=== PATIENT | male | born 1935 | race Two or more races ===

== ENCOUNTER 2022-04-10 11:53 | Inpatient (IN) | payer OTHER ==
[~2022-04-10] VITALS: Ht 175.3 cm; Wt 86.0 kg
[2022-04-10 12:29] LABS: Basophils # (auto) 0 10 ^3/uL (0-0.2); Basophils % (auto) 0.4 % (0.0-2.0); Eosinophils # (auto) 0 10 ^3/uL (0-0.8); Eosinophils % (auto) 0.4 % (0.0-7.0); Hematocrit 41.8 % (41.0-53.0); Hemoglobin 13.6 g/dL (13.5-17.5); Lymphocytes # (auto) 0.8 10 ^3/uL (0.4-5.4); Lymphocytes % (auto) 9.9 % (10.0-50.0); Mean Corpuscular Hemoglobin 29.2 pg (28.0-32.0); Mean Corpuscular Hgb Conc. 32.5 g/dL (32.0-36.0); Mean Corpuscular Volume 89.9 fL (80.0-100.0); Monocytes # (auto) 0.5 10 ^3/uL (0-1.3); Monocytes % (auto) 5.8 % (0.0-12.0); Neutrophils # (auto) 7.1 10 ^3/uL (1.6-8.6); Neutrophils % (auto) 83.5 % (37.0-80.0); Red Blood Cells 4.64 10^6/uL (4.5-5.90); Red Cell Distribution Width 15.6 % (11.8-14.3); White Blood Cell 8.5 10^3/uL (4.4-10.8)
[2022-04-10 12:46] LABS: Urine Bacteria NONE SEEN /hpf (None Seen); Urine Blood Negative /uL (Negative); Urine Specific Gravity 1.008 (1.001-1.035); Urine WBC 1 /hpf (0 - 3)
[2022-04-10 12:47] LABS: INR 1.05 (0.9-1.15); Partial Thromboplastin Time 30.8 sec (24.6-33.4)
[2022-04-10 13:05] LABS: Albumin 3.4 g/dL (3.4-5.0); BUN/Creatinine Ratio 20.8; Bilirubin, Total 0.3 mg/dL (0.2-1.0); Calcium 8.9 mg/dL (8.5-10.1); Potassium 4.4 mmol/L (3.5-5.1); Total Protein 6.8 g/dL (6.4-8.2)
[2022-04-10 13:15] LABS: Free T4 (Free Thyroxine) 1.26 ng/dL (0.89-1.76); T3 Total 0.45 ng/mL (0.60-1.81)
[2022-04-10] MEDS ORDERED: MORPHINE SULFATE INJ 2 MG/ml SYRG IV PRN (13:45)
[2022-04-10] MEDS ORDERED: NITROGLYCERIN 0.4 MG SL TAB SL PRN (13:45)
[2022-04-10] MEDS ORDERED: hydrALAZINE HCL 20 MG/ML VL IV PRN (13:45)
[2022-04-10] MEDS: DOPamine 1600MCG/ML D5W 250 ML IV SCH (17:30)
[2022-04-11] MEDS ORDERED: ACETAMINOPHEN 325 MG TAB PO ONE (04:45)
[2022-04-11 06:36] LABS: Basophils # (auto) 0 10 ^3/uL (0-0.2); Basophils % (auto) 0.3 % (0.0-2.0); Eosinophils # (auto) 0.1 10 ^3/uL (0-0.8); Eosinophils % (auto) 1.1 % (0.0-7.0); Hemoglobin 14.2 g/dL (13.5-17.5); Lymphocytes # (auto) 0.7 10 ^3/uL (0.4-5.4); Mean Corpuscular Hemoglobin 30.2 pg (28.0-32.0); Mean Corpuscular Hgb Conc. 33.8 g/dL (32.0-36.0); Mean Corpuscular Volume 89.3 fL (80.0-100.0); Monocytes # (auto) 0.8 10 ^3/uL (0-1.3); Monocytes % (auto) 6.6 % (0.0-12.0); Neutrophils # (auto) 10.7 10 ^3/uL (1.6-8.6); Nucleated Red Blood Cells % 0.1 %; White Blood Cell 12.4 10^3/uL (4.4-10.8)
[2022-04-11 06:55] LABS: Calcium 8.9 mg/dL (8.5-10.1); Potassium 5.1 mmol/L (3.5-5.1)
[2022-04-11 06:57] LABS: BUN/Creatinine Ratio 16.5
[2022-04-11] MEDS: DOPamine 1600MCG/ML D5W 250 ML IV SCH ×2 (07:58→22:11)
[2022-04-12] MEDS: DOPamine 1600MCG/ML D5W 250 ML IV SCH (09:13)
[2022-04-12 11:20] LABS: INR 1.11 (0.9-1.15)
[2022-04-13] VITALS (11 sets, daily range): BP systolic 79–124; BP diastolic 35–77
[2022-04-13] MEDS: DOPamine 1600MCG/ML D5W 250 ML IV SCH ×2 (06:41→08:22)
[2022-04-13] MEDS ORDERED: ACETAMINOPHEN 500 MG TAB PO PRN (12:15)
[2022-04-13] MEDS ORDERED: VANCOMYCIN 1GM/250ML 250 ML IV ONE ×2 (13:50→15:45)
[2022-04-13] MEDS ORDERED: VANCOMYCIN HCL 1000 MG VL ONE (14:11)
[2022-04-13] MEDS ORDERED: fentaNYL CITRATE 100 MCG/2 ML VL ONE (14:11)
[2022-04-13] MEDS ORDERED: MIDAZOLAM HCL 2MG/2ML 2ml VIAL (1mg/ml) ONE (14:11)
[2022-04-13] MEDS ORDERED: LIDOCAINE 2%HCL (LOCAL ANESTH.) INJ 20ML MDV ONE (14:12)
[2022-04-13] MEDS ORDERED: HYDROcodone-ACET 5/325MG TAB PO PRN (15:00)
[2022-04-13] MEDS ORDERED: ACETAMINOPHEN 325 MG TAB PO PRN (15:00)
[2022-04-13] MEDS ORDERED: LOVA20TA4 PO (19:34)
[2022-04-13] MEDS ORDERED: LEVO100T8 PO (19:34)
[2022-04-13] MEDS ORDERED: TAMS0.4C36 PO (19:34)
[2022-04-13] MEDS ORDERED: LISI-275 PO (19:34)
[2022-04-13] MEDS ORDERED: DEXTROSE (50%) 50ML SYRG IV PRN (20:45)
[2022-04-13] MEDS: ACCU-CHEK COMFORT CURVE STRIP VI SCH (22:00)
[2022-04-13] MEDS: InsuLIN REG 1unit/0.01ml Soln (100units/ml) SC SCH (22:00)
[2022-04-14] MEDS ORDERED: VANCOMYCIN 1GM/250ML 250 ML IV ONE (02:00)
[2022-04-14 05:00] VITALS: BP 117/60
[2022-04-14] MEDS: InsuLIN REG 1unit/0.01ml Soln (100units/ml) SC SCH ×3 (07:00→17:00)
[2022-04-14] MEDS: ACCU-CHEK COMFORT CURVE STRIP VI SCH ×3 (07:20→17:00)
[2022-04-14 09:00] VITALS: BP 125/63
[2022-04-14 13:00] VITALS: BP 110/43
[2022-04-14 14:14] VITALS: BP 127/60
== END 2022-04-14 15:00 | disposition home or self-care (01) | DRG 244 ==
LOC: ER 11:53 → EDBD 11:53 → TELE 13:46 → TELE-EAST 04-13 18:00
PROVIDERS: ADMIT Internal Medicine; ATTEND Internal Medicine
PROC: 02HK3JZ Insertion of Pacemaker Lead into Right Ventricle, Percutaneous Approach (ICD-10-PCS; principal; 2022-04-13)
PROC: 02H63JZ Insertion of Pacemaker Lead into Right Atrium, Percutaneous Approach (ICD-10-PCS; 2022-04-13)
PROC: 0JH606Z Insertion of Pacemaker, Dual Chamber into Chest Subcutaneous Tissue and Fascia, Open Approach (ICD-10-PCS; 2022-04-13)
DX: I44.2 Atrioventricular block, complete (principal); I49.9 Cardiac arrhythmia, unspecified; E03.9 Hypothyroidism, unspecified; E11.22 Type 2 diabetes mellitus with diabetic chronic kidney disease; E78.5 Hyperlipidemia, unspecified; Z20.822 Contact with and (suspected) exposure to COVID-19; I25.10 Atherosclerotic heart disease of native coronary artery without angina pectoris; Z95.0 Presence of cardiac pacemaker; Z95.1 Presence of aortocoronary bypass graft; I12.9 Hypertensive chronic kidney disease with stage 1 through stage 4 chronic kidney disease, or unspecified chronic kidney disease; N18.9 Chronic kidney disease, unspecified
CPT/HCPCS: 33208; 36415; 71045; 80048; 80053; 81001; 82962; 83735; 83880; 84439; 84443; 84480; 84484; 85025; 85610; 85730; 87426; 93005; 93306; 99152; 99153; 99291; C1785; G0378; J2250

== ENCOUNTER 2024-05-31 00:48 | Inpatient (IN) | payer OTHER ==
[~2024-05-31] VITALS: Ht 167.6 cm; Wt 90.1 kg
[~2024-05-31 00:48] MED LIST: LEVO100T8 PO; LISI-275 PO; LOVA20TA4 PO; TAMS0.4C39 PO
--- NOTE | 2024-05-31 01:05 | ED.PDOC ---
GI ASSESSMENT HPI Comments HPI: Poor Historian. 88-year-old male presents to emergency department for one day history of two episodes of rectal bleeding. Denies any abdominal pain nausea or vomiting. Patient is on aspirin. Patient has a colonoscopy many years ago. Patient noticed bright red blood in the toilet bowl. Past Medcial History: HLD, CKF, hypothyroidism, prostate CA Past Surgical History: CABG, appendectomy, hernia repair Vitals: temperature of 98.3F, pulse of 69, respiratory rate of 18, blood pressure of 145/73, and a SpO2 of 97%%RA REVIEW OF SYSTEMS: CONSTITUTIONAL: Denies acute: fever, diaphoresis, chills, generalized weakness. HEAD: Denies acute: headache, photophobia Eyes: Denies acute: Double vision, vision loss, eye pain, eye discharge. EARS: Denies acute: tinnitus, hearing loss, ear discharge, ear pain, THROAT: Denies acute: sore throat, swelling, difficulty swallowing , pain with swallowing, change in voice. NECK: Denies acute: neck pain, neck swelling, stiff neck. HEART: Denies acute : chest pain, palpitations, LUNGS: Denies acute: SOB, wheezing, cough, hemoptysis ABDOMEN: Denies acute: abdominal pain, Nausea, Vomiting, diarrhea, melena , hematemesis, SKIN: Denies acute: rash, redness, lesions, itchiness. EXTREMITIES: Denies acute: calf pain, numbness, tingling, weakness, denies pain in extremity. Denies acute: Low back pain. Neuro: Denies acute: focal neurological deficit, motor or sensory focal neurological deficit, tremors, seizure like activity, confusion, dizziness, change in mental status, loss of bowel or bladder function, cauda equina like symptoms. : Denies acute: dysuria, hematuria, flank pain, increase in urinary frequency. PSYCH: Denies acute: hallucination, suicidal ideation, homicidal ideation. PHYSICAL EXAM: General: no acute distress, awake and alert. Head: normocephalic, atraumatic. Neck: supple, trachea is midline, no swelling. Throat: Normal phonation. Eyes:, no erythema, no purulent discharge, no proptosis, no icterus. Heart: regular rate, regular rhythm, no significant murmur appreciated. Lungs: no apparent respiratory distress, Able to speak in full sentences. No wheezing, no rhonchi, no crackles. No stridors Clear to auscultation bilaterally. Abdomen: non tender to palpation, non distended, soft, no guarding, no rebound, + bowel sounds. Neuro: Awake, Alert, oriented to name, self, situation, follows commands GCS=15. Speech is normal. Skin: no petechia, no purpura, no cyanosis, non-pale, not jaundice. Lower extremities: --no - Pitting edema no deformity, no focal swelling, no calf TTP. Makes eye contact. moves all four extremities. Face: no apparent facial droop. Ambulating in the ED independently. With a cane. Time Seen by MD: 00:54 Primary Care Provider: Dilshad Reviewed Notes: Nurses Notes, Medications, Allergies Allergies: Coded Allergies: Codeine (Verified Allergy, Unknown, 04/10/22) Penicillins (Verified Allergy, Unknown, 04/10/22) Uncoded Allergies: PENICILLIN (Allergy, Unknown, 04/10/22) Home Meds Reported Medications Doxycycline Hyclate (Doxycycline Hyclate) 100 Mg Tab, 1 05/31/24 Pregabalin (Lyrica) 50 Mg Cap, 1 CAP PO DAILY for AT BED TIME, #90 CAP 05/31/24 Acetaminophen (Tylenol) 325 Mg Cap, 500 MG PO BID, CAP 05/31/24 Aspirin (Aspir-81) 81 Mg Tab, 1 TAB PO DAILY, #30 TAB 5 Refills 05/31/24 Sacubitril-Valsartan (Entresto 24-26 mg) 1 Tab Tab 05/31/24 Lovastatin (Lovastatin) 20 Mg Tab, 1 TAB PO DAILYPRN 04/13/22 Lisinopril (Lisinopril) 5 Mg Tab, 1 TAB PO DAILYPRN 04/13/22 Levothyroxine Sodium (Levothyroxine Sodium) 100 Mcg Tab, 1 TAB PO DAILYPRN 04/13/22 Tamsulosin Hcl (Tamsulosin Hcl) 0.4 Mg Cap, 1 CAP PO DAILYPRN 04/13/22 Information Source: Patient Past Medical History PAST MEDICAL HISTORY: CKF, DM, High Lipids, HTN, Thyroid Surgical History: Appendectomy, CABG, Hernia Repair Family History Family History: Reviewed,noncontributory to illness Social History Smoker: Non-Smoker Alcohol: Denies ETOH Use Drugs: Denies Drug Use Lives In: Home Was a procedure done? Was a procedure done?: No GI differential Dx Differential Diagnosis: Other (Diverticulitis, colitis, fistula, neoplasm, hemorrhoids, anal fissures, constipation, Crohn's disease, ulcerative colitis) X-Ray, Labs, Meds, VS Vital Signs Date Time Temp Pulse Resp B/P (MAP) Pulse Ox O2 Delivery O2 Flow Rate FiO2 05/31/24 05:25 67 18 128/65 (86) 97 05/31/24 04:15 60 05/31/24 04:00 60 05/31/24 03:25 69 16 97 Room Air* 0 21 05/31/24 03:25 98.1 69 18 145/73 (97) 97 98.1 05/31/24 01:07 98.1 69 18 145/73 (97) 97 Lab Test 05/31/24 04:46 05/31/24 03:20 05/31/24 01:26 Range/Units Urine Color Light-yellow Yellow Urine Clarity Clear Clear Urine pH 5.5 5.0-9.0 Urine Specific [place] 1.032 1.001-1.035 Urine Protein Negative Negative Urine Ketones Negative Negative Urine Blood Negative Negative /uL Urine Nitrite Negative Negative Urine Bilirubin Negative Negative Urine Urobilinogen Normal Negative mg/dL Urine Leukocyte Esterase Negative Negative /uL Urine RBC None seen 0 - 3 /hpf Urine Microscopic WBC 1 0-3 /HPF Urine Squamous Epithelial Cells None seen <5 /hpf Urine Bacteria None seen None Seen /hpf Urine Glucose Normal Normal mg/dL Lactic Acid Level 1.8 4.0 *H 0.4-2.0 mmol/L White Blood Count 8.9 4.4-10.8 10^3/uL Red Blood Count 5.15 4.5-5.90 10^6/uL Hemoglobin 16.0 13.5-17.5 g/dL Hematocrit 47.5 41.0-53.0 % Mean Corpuscular Volume 92.4 80.0-100.0 fL Mean Corpuscular Hemoglobin 31.1 28.0-32.0 pg Mean Corpuscular Hemoglobin Concent 33.7 32.0-36.0 g/dL Red Cell Distribution Width 15.3 H 11.8-14.3 % Platelet Count 228 140-450 10^3/uL Mean Platelet Volume 7.8 6.9-10.8 fL Neutrophils (%) (Auto) 71.4 37.0-80.0 % Lymphocytes (%) (Auto) 20.7 10.0-50.0 % Monocytes (%) (Auto) 5.5 0.0-12.0 % Eosinophils (%) (Auto) 1.9 0.0-7.0 % Basophils (%) (Auto) 0.5 0.0-2.0 % Neutrophils # (Auto) 6.4 1.6-8.6 10 ^3/uL Lymphocytes # (Auto) 1.8 0.4-5.4 10 ^3/uL Monocytes # (Auto) 0.5 0-1.3 10 ^3/uL Eosinophils # (Auto) 0.2 0-0.8 10 ^3/uL Basophils # (Auto) 0 0-0.2 10 ^3/uL Nucleated Red Blood Cells 0.1 % Prothrombin Time 11.6 9.3-11.8 sec Prothrombin Time INR 1.11 0.9-1.15 Activated Partial Thromboplast Time 29.1 24.5-34.5 SEC Sodium Level 144 136-145 mmol/L Potassium Level 4.5 3.5-5.1 mmol/L Chloride Level 106 98-107 mmol/L Carbon Dioxide Level 28 20-31 mmol/L Anion Gap 10 5-15 Blood Urea Nitrogen 19 9-23 mg/dL Creatinine 1.28 0.700-1.30 mg/dL Glomerular Filtration Rate Calc 55 >90 mL/min BUN/Creatinine Ratio 14.8 10.0-20.0 Serum Glucose 99 74-106 mg/dL Calcium Level 10.2 8.7-10.4 mg/dL Total Bilirubin 0.5 0.2-1.0 mg/dL Aspartate Amino Transferase (AST) 20 13-40 U/L Alanine Aminotransferase (ALT) 31 7-40 U/L Alkaline Phosphatase 64 46-116 U/L Troponin I High Sensitivity 24 </=54 ng/L Total Protein 6.7 5.7-8.2 g/dL Albumin 4.0 3.2-4.8 g/dL Time of 1ST Reevaluation: 00:54 Reevaluation 1ST: Unchanged Time of 2ND Reevaluation: 02:24 (The case was discussed with the admitting team (HPI, physical exam, labs and diagnostic tests that were available at the time of disposition, ED course, treatment plan) on the phone. They agreed to admit the patient to their service and assume care of this patient from this point forward. --- Rolly) Reevaluation 2ND: Stable Patient Education/Counseling: Diagnosis, Treatment Family Education/Counseling: No Family Present Comments Patient presented with the above HPI. Gastrointestinal/rectal bleed workup was initiated. patient was found with the above mentioned diagnosis. the following medications were ordered: Protonix, IV fluids the following tests were ordered: CMP, CBC, UA, EKG, lactic acid, prothrombin time, PTPTT, troponin, CBC, CMP, type and screen please refer to order lists of meds and tests obtained by myself Dr. Connor. Patient ED course and VS have been stabilized. Patient has been reassessed in the ED and remained in a stable condition. Pertinent incidental findings were discussed with the patient and/or family. Patient/family voices understanding and is agreeable with plan. Patient has been observed in the ED adequate length of time to insure improvement/stability. Escalation of care considered: Consideration of escalation to observation or admission Patient was ADMITTED to the medicine team for further evaluation and treatment of their presentation. All the reports of any imaging studies that were ordered by myself were reviewed by myself. Departure 1 Departure Time of Disposition: 02:23 Impression: Primary Impression: Rectal bleeding Additional Impression: Elevated lactic acid level Disposition: ADMITTED INPATIENT Admit to: Tele Condition: Guarded Discharged With: Self Critical Care Note Critical Care Time?: No I personally scribed for ALEX CONNOR DO ([email or web address]) on 05/31/24 at 01:30. Electronically submitted by Dieudonne Jeter ([email or web address]). ALEX CONNOR DO May 31, 2024 01:05
[2024-05-31 01:51] LABS: Basophils # (auto) 0 10 ^3/uL (0-0.2); Basophils % (auto) 0.5 % (0.0-2.0); Eosinophils # (auto) 0.2 10 ^3/uL (0-0.8); Eosinophils % (auto) 1.9 % (0.0-7.0); Hematocrit 47.5 % (41.0-53.0); Lymphocytes # (auto) 1.8 10 ^3/uL (0.4-5.4); Lymphocytes % (auto) 20.7 % (10.0-50.0); Mean Corpuscular Hemoglobin 31.1 pg (28.0-32.0); Mean Corpuscular Hgb Conc. 33.7 g/dL (32.0-36.0); Mean Corpuscular Volume 92.4 fL (80.0-100.0); Monocytes # (auto) 0.5 10 ^3/uL (0-1.3); Monocytes % (auto) 5.5 % (0.0-12.0); Neutrophils # (auto) 6.4 10 ^3/uL (1.6-8.6); Neutrophils % (auto) 71.4 % (37.0-80.0); Nucleated Red Blood Cells % 0.1 %; Platelet Count (auto) 228 10^3/uL (140-450); Red Blood Cells 5.15 10^6/uL (4.5-5.90); Red Cell Distribution Width 15.3 % (11.8-14.3); White Blood Cell 8.9 10^3/uL (4.4-10.8)
[2024-05-31 02:08] LABS: INR 1.11 (0.9-1.15); Partial Thromboplastin Time 29.1 SEC (24.5-34.5); Prothrombin Time 11.6 sec (9.3-11.8)
[2024-05-31 02:19] LABS: Alanine Aminotransferase 31 U/L (7-40); Alkaline Phosphatase 64 U/L (46-116); Anion Gap 10 (5-15); Aspartate Aminotransferase 20 U/L (13-40); BUN/Creatinine Ratio 14.8 (10.0-20.0); Bilirubin, Total 0.5 mg/dL (0.2-1.0); Blood Urea Nitrogen 19 mg/dL (9-23); Calcium 10.2 mg/dL (8.7-10.4); Carbon Dioxide 28 mmol/L (20-31); Chloride 106 mmol/L (98-107); Glucose 99 mg/dL (74-106); Potassium 4.5 mmol/L (3.5-5.1); Sodium 144 mmol/L (136-145); Total Protein 6.7 g/dL (5.7-8.2)
[2024-05-31] MEDS: SODIUM CHLORIDE 0.9% 1,000 ML IV ONE (03:02)
[2024-05-31] MEDS: PANTOPRAZOLE 40 MG/10 ML VIAL INJ IV ONE (03:02)
[2024-05-31 03:25] VITALS: PULSE 69; RESP 16; O2SAT 97
--- NOTE | 2024-05-31 04:06 | DVH ---
Examination: ABPLIV CLINICAL INDICATION: rectal bleeding COMPARISON: None. CONTRAST USED: Intravenous. TECHNIQUE: A post contrast CT study of the abdomen and pelvis is performed. The examination was per formed with [address] scan done according to ALARA (As Low as Reasonably Achievable). Mu ltiplanar reconstructions were obtained. FINDINGS: CT ABDOMEN: Visualized lower thorax: The evaluation of lung bases demonstrates no focal infiltrates or pleural e ffusion. Atelectatic band and / or scarring in the visualized right lower pulmonary lobe posteriorly. Partly visualized intracardiac radiopaque leads noted, likely pacemaker leads. Advised correlation [facility] history of pacemaker insertion. Liver: The liver is normal in size. The portal venous radicles are normal. There is no intrahepatic biliary radicle dilatation. Gallbladder: The gallbladder is normal and reveals no intrinsic abnormality. The common bile duct is not dilated. Pancreas: The pancreas is normal in size and shape. No focal lesion is seen within. The peripancreatic fat planes are normal. Spleen: The spleen is normal in size. Hypodense lesion of approximate size 6 mm noted in the splenic parenchyma superiorly. Advised furth er evaluation with MRI abdomen without contrast. Retroperitoneum: Both adrenal glands are normal in size and morphology. There is no significant retroperitoneal lymphadenopathy. The kidneys are normal in size with no hydronephrosis or renal calculi. Bosniak class I simple renal cortical cysts in both kidneys, largest of approximate size 15 mm at the upper pole of left kidney for which no routine follow-up is required. Vessels: Calcific atherosclerotic aorto-iliac plaques noted. Otherwise, the aorta, IVC and mesenter ic vessels appear unremarkable. Stomach and bowel: Small fat filled umbilical hernia. The bowel loops are unremarkable. There is no ascites. Skeletal system: Sacralization of L5 vertebra, transitional vertebra, however, MRI localizer sequenc e of whole spine for vertebral count is suggested. Degenerative changes in the visualized thoracolumbar vertebrae and the pelvic bones. CT PELVIS: Appendix: The appendix is not visualized. Colon: The rectosigmoid junction and rectum are collapsed with wall thickening (anteroposterior diam eter of the rectum is approximately 37 mm), possibility of rectal neoplasm to be considered. Advised clinical and proctoscopic correlations and further evaluation with MRI pelvis without contrast if cli nically indicated. Diverticulosis without diverticulitis in the descending and sigmoid colon. The ascending and transverse colon are unremarkable. Urinary bladder: The urinary bladder is unremarkable. Pelvic organs: The prostate is normal in size and unremarkable in appearance. No significant pelvic lymphadenopathy is identified. No abnormal fluid collection is seen. Left indirect inguinal omentocele. IMPRESSION: 1. The rectosigmoid junction and rectum are collapsed with wall thickening (anteroposterior diameter of the rectum is approximately 37 mm), possibility of rectal neoplasm to be considered. Advised cli nical and proctoscopic correlations and further evaluation with MRI pelvis without contrast if clinic ally indicated. 2. No abdominal adenopathy. 3. No ascites. 4. No free air or inflammatory changes. 5. Chronic and / or ancillary findings as described above. Electronically Signed 05/31/2024 04:05 Savanna Edouard
[2024-05-31] MEDS: IOHEXOL 300 MG/ML 100ML BOTTLE IJ ONE (04:20)
[2024-05-31 05:00] LABS: Urine Bacteria None Seen /hpf (None Seen)
[2024-05-31 05:05] LABS: Urine Blood Negative /uL (Negative); Urine Clarity Clear (Clear); Urine Color Light-Yellow (Yellow); Urine Protein, UAD Negative (Negative); Urine Specific Gravity 1.032 (1.001-1.035); Urine Squamous Epithelial Cell None Seen /hpf (<5); Urine Urobilinogen Normal (Negative); Urine WBC 1 /HPF (0-3); Urine pH 5.5 (5.0-9.0)
--- NOTE | 2024-05-31 06:40 | ECG ---
[facility] Test Date: 2024-05-31 Test Time: 04:15:33 Pat Name: BARBER HORVATH Department: ED Room: [address] [place] [address] Gender: M Outbound Telemarketer: LYLE : 1935 Requested By: ALEX KNIGHT Order Number: [id number] Reading MD: David Streeter Measurements Intervals [place] Rate: 60 P: 0 IL: 51 QRS: -79 QRSD: 150 T: 88 QT: 471 QTc: 471 Interpretive Statements Ventricular-paced complexes No further analysis attempted due to paced rhythm Electronically Signed On 05-31-2024 8:57:12 PST by David Streeter Please click the below link to view image of tracing.
[2024-05-31] MEDS ORDERED: NITROGLYCERIN 0.4 MG SL TAB SL PRN (06:45)
[2024-05-31] MEDS: SOD CHL 0.45% 1,000 ML IV ONE (06:56)
--- NOTE | 2024-05-31 07:07 | DVHHP2 ---
Admitting Diagnosis: Lower GI bleed History of Present Illness HPI 88 years old male with h/o prostate cancer was brought to the ER c/o two episodes of rectal bleed, stating that there was bright red blood in the toilet bowl twice. Denies abdominal pain, nausea, vomiting, denies previous episodes similar to this one. Denies any abdominal pain nausea or vomiting. Patient had no colonoscopy for many years. CT shows rectosigmoid junction wall thickening possibly fletcher to neoplasm. Home Meds Reported Medications Lovastatin (Lovastatin) 20 Mg Tab, 1 TAB PO DAILYPRN 04/13/22 Lisinopril (Lisinopril) 5 Mg Tab, 1 TAB PO DAILYPRN 04/13/22 Levothyroxine Sodium (Levothyroxine Sodium) 100 Mcg Tab, 1 TAB PO DAILYPRN 04/13/22 Tamsulosin Hcl (Tamsulosin Hcl) 0.4 Mg Cap, 1 CAP PO DAILYPRN 04/13/22 Past Medical History Cardiac: HTN, Hyperlipidemia Renal/: Prostate cancer Patient Family History: FH: cancer Review of Systems Gastrointestinal: Hematochezia H&P Exam Vital Signs Vital Signs Date Time Temp Pulse Resp B/P (MAP) Pulse Ox O2 Delivery O2 Flow Rate FiO2 05/31/24 05:25 67 18 128/65 (86) 97 05/31/24 03:25 Room Air* 0 21 05/31/24 03:25 98.1 98.1 General Appeara: Obese Head Exam: Normal inspection Neck Exam: Normal inspection Eye Exam: bilateral eye PERRL, bilateral eye EOMI Pulmonary/Respiratory: Lungs clear Cardiovascular/Chest: Regular rate Abdominal Exam: No tenderness Neuro/Mental St: Alert, Oriented Labs/Xrays Labs Test 05/31/24 04:46 05/31/24 03:20 05/31/24 01:26 Range/Units Urine Color Light-yellow Yellow Urine Clarity Clear Clear Urine pH 5.5 5.0-9.0 Urine Specific [place] 1.032 1.001-1.035 Urine Protein Negative Negative Urine Ketones Negative Negative Urine Blood Negative Negative /uL Urine Nitrite Negative Negative Urine Bilirubin Negative Negative Urine Urobilinogen Normal Negative mg/dL Urine Leukocyte Esterase Negative Negative /uL Urine RBC None seen 0 - 3 /hpf Urine Microscopic WBC 1 0-3 /HPF Urine Squamous Epithelial Cells None seen <5 /hpf Urine Bacteria None seen None Seen /hpf Urine Glucose Normal Normal mg/dL Lactic Acid Level 1.8 0.4-2.0 mmol/L White Blood Count 8.9 4.4-10.8 10^3/uL Red Blood Count 5.15 4.5-5.90 10^6/uL Hemoglobin 16.0 13.5-17.5 g/dL Hematocrit 47.5 41.0-53.0 % Mean Corpuscular Volume 92.4 80.0-100.0 fL Mean Corpuscular Hemoglobin 31.1 28.0-32.0 pg Mean Corpuscular Hemoglobin Concent 33.7 32.0-36.0 g/dL Red Cell Distribution Width 15.3 H 11.8-14.3 % Platelet Count 228 140-450 10^3/uL Mean Platelet Volume 7.8 6.9-10.8 fL Neutrophils (%) (Auto) 71.4 37.0-80.0 % Lymphocytes (%) (Auto) 20.7 10.0-50.0 % Monocytes (%) (Auto) 5.5 0.0-12.0 % Eosinophils (%) (Auto) 1.9 0.0-7.0 % Basophils (%) (Auto) 0.5 0.0-2.0 % Neutrophils # (Auto) 6.4 1.6-8.6 10 ^3/uL Lymphocytes # (Auto) 1.8 0.4-5.4 10 ^3/uL Monocytes # (Auto) 0.5 0-1.3 10 ^3/uL Eosinophils # (Auto) 0.2 0-0.8 10 ^3/uL Basophils # (Auto) 0 0-0.2 10 ^3/uL Nucleated Red Blood Cells 0.1 % Prothrombin Time 11.6 9.3-11.8 sec Prothrombin Time INR 1.11 0.9-1.15 Activated Partial Thromboplast Time 29.1 24.5-34.5 SEC Sodium Level 144 136-145 mmol/L Potassium Level 4.5 3.5-5.1 mmol/L Chloride Level 106 98-107 mmol/L Carbon Dioxide Level 28 20-31 mmol/L Anion Gap 10 5-15 Blood Urea Nitrogen 19 9-23 mg/dL Creatinine 1.28 0.700-1.30 mg/dL Glomerular Filtration Rate Calc 55 >90 mL/min BUN/Creatinine Ratio 14.8 10.0-20.0 Serum Glucose 99 74-106 mg/dL Calcium Level 10.2 8.7-10.4 mg/dL Total Bilirubin 0.5 0.2-1.0 mg/dL Aspartate Amino Transferase (AST) 20 13-40 U/L Alanine Aminotransferase (ALT) 31 7-40 U/L Alkaline Phosphatase 64 46-116 U/L Troponin I High Sensitivity 24 </=54 ng/L Total Protein 6.7 5.7-8.2 g/dL Albumin 4.0 3.2-4.8 g/dL Assessment/Plan Problem List: (1) Colon wall thickening (2) Rectal bleeding Plan NPO, GI consult, IVF, Protonix Plan discussed with: Patient ISREAL BAEZ MD May 31, 2024 07:07
[2024-05-31 07:31] LABS: Basophils # (auto) 0 10 ^3/uL (0-0.2); Basophils % (auto) 0.1 % (0.0-2.0); Eosinophils # (auto) 0.1 10 ^3/uL (0-0.8); Eosinophils % (auto) 0.8 % (0.0-7.0); Hematocrit 40.5 % (41.0-53.0); Hemoglobin 13.7 g/dL (13.5-17.5); Lymphocytes # (auto) 1.2 10 ^3/uL (0.4-5.4); Lymphocytes % (auto) 14.8 % (10.0-50.0); Mean Corpuscular Hgb Conc. 33.8 g/dL (32.0-36.0); Mean Corpuscular Volume 91.8 fL (80.0-100.0); Monocytes # (auto) 0.4 10 ^3/uL (0-1.3); Monocytes % (auto) 5.4 % (0.0-12.0); Neutrophils # (auto) 6.5 10 ^3/uL (1.6-8.6); Neutrophils % (auto) 78.9 % (37.0-80.0); Nucleated Red Blood Cells % 0.6 %; Platelet Count (auto) 197 10^3/uL (140-450); Red Blood Cells 4.41 10^6/uL (4.5-5.90); Red Cell Distribution Width 14.8 % (11.8-14.3); White Blood Cell 8.3 10^3/uL (4.4-10.8)
[2024-05-31 07:49] LABS: Alanine Aminotransferase 23 U/L (7-40); Albumin 3.4 g/dL (3.2-4.8); Alkaline Phosphatase 50 U/L (46-116); Anion Gap 7 (5-15); Aspartate Aminotransferase 14 U/L (13-40); BUN/Creatinine Ratio 15.8 (10.0-20.0); Bilirubin, Total 0.5 mg/dL (0.2-1.0); Blood Urea Nitrogen 18 mg/dL (9-23); Calcium 9.2 mg/dL (8.7-10.4); Carbon Dioxide 27 mmol/L (20-31); Chloride 107 mmol/L (98-107); Glucose 86 mg/dL (74-106); Potassium 4.1 mmol/L (3.5-5.1); Sodium 141 mmol/L (136-145)
[2024-05-31 07:58] LABS: Total Protein 5.6 g/dL (5.7-8.2)
[2024-05-31 08:21] VITALS: PULSE 61; RESP 12; O2SAT 98
[2024-05-31] MEDS: GOLYTELY 4L KIT PO ONE ×2 (09:13→16:41)
[2024-05-31 18:34] VITALS: RESP 20
[2024-05-31] MEDS ORDERED: SACU1TAB (18:56)
[2024-05-31] MEDS ORDERED: ASPI1TAB20 PO (18:57)
[2024-05-31] MEDS ORDERED: ACET1CAP14 PO (18:58)
[2024-05-31] MEDS ORDERED: PREG50CA PO (19:00)
[2024-05-31] MEDS ORDERED: DOXY100T2 (19:01)
[2024-05-31 21:00] VITALS: BP 152/80; PULSE 56; RESP 17; TEMP 97.4; O2SAT 97
--- NOTE | 2024-05-31 21:25 | DVHINCON2 ---
DATE OF CONSULTATION: 05/31/2024 INPATIENT GI CONSULTATION REFERRING PHYSICIAN: Dr. Lofton. REASON FOR CONSULTATION: Abnormal CT scan. HISTORY OF PRESENT ILLNESS: This is a 88-year-old male, patient has history of hypothyroidism, hypertension, dyslipidemia, history of prostate cancer, who presents to the hospital with complaints of recurrent rectal bleeding for the last 2 days. The patient underwent initial workup in the ER showing hemoglobin of 13.7 [address] scan showing rectosigmoid junction and rectum collapse and wall thickening, possibly related to rectal neoplasm. GI is consulted for further input. The patient reportedly had a colonoscopy in 2011 and was unremarkable. The patient denies any associated severe abdominal pain and constipation. Denies unintentional weight loss. REVIEW OF SYSTEMS: Otherwise, 10 point review of systems negative. PAST MEDICAL HISTORY: As above. FAMILY HISTORY: Negative for early GI malignancy. PHYSICAL EXAMINATION: VITAL SIGNS: Currently on exam, temperature is 98.6, pulse 60, blood pressure 123/66. GENERAL: The patient is obese, otherwise alert, in no acute distress. HEENT: Oropharynx is dry. LUNGS: Clear. HEART: Regular rate. ABDOMEN: Soft, nondistended, nontender. EXTREMITIES: Lower extremities, no clubbing, cyanosis or edema. CURRENT DIAGNOSTIC DATA: Labs again showed a WBC is 8.3, hemoglobin 13.7, platelet count 197, BUN 18, creatinine 1.14. INR is 1.[address] scan abdomen and pelvis results were mentioned above. IMPRESSION: Rectal bleeding and abnormal CT scan. Differentials include underlying diverticular bleeding hemorrhoids versus underlying malignancy. Overall, the patient is stable. Recommend prepping the patient for anticipated colonoscopy for further evaluation. Risks, benefits and alternatives to procedure were explained to the patient and his son at the bedside. The patient understands and willing to proceed. Thanks for allowing me the opportunity to participate in care of this patient. MD ELEN Byers/SKIP TID: [id number] RECEIPT: [id number]
[2024-05-31] MEDS: PANTOPRAZOLE 40 MG/10 ML VIAL INJ IV SCH (22:22)
[2024-06-01 01:00] VITALS: BP 135/80; PULSE 60; RESP 17; TEMP 98.3; O2SAT 97
[2024-06-01 05:00] VITALS: BP 133/77; PULSE 60; RESP 18; TEMP 98.2; O2SAT 98
[2024-06-01 06:40] LABS: Basophils # (auto) 0 10 ^3/uL (0-0.2); Basophils % (auto) 0.2 % (0.0-2.0); Eosinophils # (auto) 0.1 10 ^3/uL (0-0.8); Eosinophils % (auto) 1.3 % (0.0-7.0); Hematocrit 41.1 % (41.0-53.0); Hemoglobin 13.9 g/dL (13.5-17.5); Lymphocytes # (auto) 1.6 10 ^3/uL (0.4-5.4); Lymphocytes % (auto) 16.1 % (10.0-50.0); Mean Corpuscular Hemoglobin 31.2 pg (28.0-32.0); Mean Corpuscular Hgb Conc. 33.8 g/dL (32.0-36.0); Mean Corpuscular Volume 92.5 fL (80.0-100.0); Monocytes # (auto) 0.7 10 ^3/uL (0-1.3); Monocytes % (auto) 6.7 % (0.0-12.0); Neutrophils # (auto) 7.6 10 ^3/uL (1.6-8.6); Neutrophils % (auto) 75.7 % (37.0-80.0); Platelet Count (auto) 201 10^3/uL (140-450); Red Blood Cells 4.45 10^6/uL (4.5-5.90); Red Cell Distribution Width 15.1 % (11.8-14.3); White Blood Cell 10.1 10^3/uL (4.4-10.8)
[2024-06-01] MEDS: GOLYTELY 4L KIT PO ONE (06:42)
[2024-06-01 07:12] LABS: Alanine Aminotransferase 27 U/L (7-40); Alkaline Phosphatase 57 U/L (46-116); Anion Gap 10 (5-15); Aspartate Aminotransferase 32 U/L (13-40); BUN/Creatinine Ratio 14.7 (10.0-20.0); Bilirubin, Total 0.7 mg/dL (0.2-1.0); Blood Urea Nitrogen 16 mg/dL (9-23); Calcium 9.5 mg/dL (8.7-10.4); Carbon Dioxide 23 mmol/L (20-31); Glucose 75 mg/dL (74-106); Total Protein 6.1 g/dL (5.7-8.2)
[2024-06-01 07:13] LABS: Chloride 107 mmol/L (98-107); Potassium 4.9 mmol/L (3.5-5.1); Sodium 140 mmol/L (136-145)
[2024-06-01] MEDS ORDERED: NALOXONE HCL 0.4 MG/ML VIAL ONE (08:29)
[2024-06-01] MEDS ORDERED: SODIUM CHLORIDE LOCK 10 ML ONE (08:29)
[2024-06-01] MEDS ORDERED: FLUMAZENIL 0.1 MG/ML INJ 10ML MDV IV ONE (08:29)
[2024-06-01] MEDS ORDERED: diphenhdrAMINE HCL 50 MG/1 ML VL ONE (08:30)
[2024-06-01 08:56] VITALS: O2SAT 99
--- NOTE | 2024-06-01 09:01 | DVHPN2 ---
Progress Note - Dictate Date Seen: Jun 01, 2024 Medical Necessity Reason Pt with a Central, PICC or Fol: No Subjective The pt reports no further rectal bleeding today. Denies abd pain. vital signs Vital Sign Date Time Temp Pulse Resp B/P (MAP) Pulse Ox O2 Delivery O2 Flow Rate FiO2 06/01/24 05:00 98.2 60 18 133/77 (95) 98 98.2 05/31/24 20:00 Room Air* 0 21 Total Intake and Output 05/31/24 05/31/24 06/01/24 15:00 23:00 07:00 Intake Total 350 ml Balance 350 ml medications Current Medications Medications Dose Ordered Sig/Ze Route Start Time Stop Time Status Last Admin Dose Admin Nitroglycerin 0.4 mg Q5MINP PRN SL 05/31/24 06:45 Pantoprazole Sodium 40 mg BID IV 05/31/24 22:00 05/31/24 22:22 40 MG objective Alert RRR CTA BS+ s/nd/nt laboratory and microbiology Laboratory Tests 06/01/24 06:00 Test 06/01/24 06:00 Range/Units Serum Glucose 75 74-106 mg/dL Assessment/Plan 1) Rectal bleeding 2) Abnormal CT scan. Differentials include underlying diverticular bleeding hemorrhoids versus underlying malignancy. Overall, the patient is stable. Recommendation: Cont to monitor H&H serially We will proceed to colonoscopy for evaluation. Plan discussed with: Patient PEDRO LUIS RAYO MD Jun 01, 2024 09:01
[2024-06-01] MEDS: fentaNYL CITRATE 100 MCG/2 ML VL ONE (09:03)
[2024-06-01] MEDS: MIDAZOLAM HCL 5 MG/ML-1ML VIAL ONE (09:03)
[2024-06-01 09:17] VITALS: O2SAT 99
--- NOTE | 2024-06-01 09:21 | DVHOP2 ---
Operative Report DATE OF OPERATION: 06/01/24 PROCEDURE: Colonoscopy. PREOPERATIVE INDICATION: The patient is a 88 -year-old male undergoing colonoscopy for rectal bleeding and abnormal CT POSTOPERATIVE DIAGNOSES: PROCEDURE PERFORMED BY: Omar Samayoa M.D. SCOPE: Olympus videocolonoscope. ASA CLASS: PREOPERATIVE MEDICATIONS: Versed 4 mg, Fentanyl 100 mcg, PROCEDURE IN DETAIL: After obtaining an informed consent, the patient was placed on left lateral decubitus position. He was then sedated with the above medications. A rectal examination was performed that was normal. The colonoscope was then passed through the anus into the rectosigmoid and through the descending, transverse, and ascending colon up to the cecum with visualization of the appendiceal orifice, base of the cecum and the ileocecal valve. The colonoscope was then withdrawn. The patient tolerated the procedure well without difficulty. WITHDRAWAL TIME: 6 minutes QUALITY OF THE PREP: fair Summary of Findings: 1) Fair prep 2) Moderate sigmoid colon diverticulosis. No evidence of bleeding or diverticulitis seen. 3) Mild ascending colon diverticulosis. No evidence of bleeding or diverticulitis seen. 4) Small Internal hemorrhoids COMPLICATIONS : None SPECIMENS: None DISPOSITION: D/C to home PLAN: 1. High fiber diet OMAR SAMAYOA MD Jun 01, 2024 09:21
[2024-06-01 09:30] VITALS: BP 129/70; PULSE 60; RESP 18; TEMP 97.4; O2SAT 99
--- NOTE | 2024-06-01 09:32 | DVHDS2 ---
New Physician D'charge PN Admitting Diagnosis Admitting Diagnosis rectal bleeding Discharge Diagnosis rectal bleeding s/p colonscopsy Operations or Procedures colonoscopy Reason(s) For Hospitalization Surgery Hospital Course 88 M who comes to ER for rectal bleeding. His CT showed colonic thickening, He was admitted and GI saw the patient. He was prepped for colonoscopy and done by GI and colo revealed no evidence of active bleeding or malignancy. please refer to the full colonoscopy report for details. His hgb remained stable and he did not require blood transfusion. He was cleared for dc home by GI after colonoscopy was negative for bleeding or malignant findings. Patient to discharge home and he will have outpt follow up with his PCP via [employer]. Treatment Plan Discharge Condition of Discharge Good Disposition Home Discharge Instructions Diet: Cardiac 2g Na,low cholest Activity: No Restrictions, As Tolerated Medications: see med sheet Follow Up Care Follow Up/Referral: Follow up with GI. Discharge Statement: "Patient was advised to return to the ER or call 911 if any headaches, dizziness, shortness of breath, chest pain, abdominal pain, bleeding, fevers, or worsening of medical condition. Patient was counseled about treatment plan, medications, possible side effects, patientverbalized understanding. All questions were answered to the best of my ability. This discharge took greater then 30 minutes in planning, reviewing documentation, counseling the patient, and discussing with other team members." GRETA COWART MD Jun 01, 2024 09:32
[2024-06-01 10:03] VITALS: BP 116/68; PULSE 60; RESP 18; TEMP 97.7; O2SAT 96
== END 2024-06-01 12:58 | disposition home or self-care (01) | DRG 393 ==
LOC: ER 00:48 → OVERFLOW 06:31 → CENTRAL 18:30
PROVIDERS: ADMIT Internal Medicine; ATTEND Internal Medicine
PROC: 0DJD8ZZ Inspection of Lower Intestinal Tract, Via Natural or Artificial Opening Endoscopic (ICD-10-PCS; principal; 2024-06-01 08:56)
DX: K64.8 Other hemorrhoids (principal); K57.31 Diverticulosis of large intestine without perforation or abscess with bleeding; E03.9 Hypothyroidism, unspecified; E11.9 Type 2 diabetes mellitus without complications; I10 Essential (primary) hypertension; E78.5 Hyperlipidemia, unspecified; Z85.46 Personal history of malignant neoplasm of prostate; Z95.1 Presence of aortocoronary bypass graft; Z79.4 Long term (current) use of insulin; Z79.899 Other long term (current) drug therapy
CPT/HCPCS: 36415; 45378; 74177; 80053; 81001; 83605; 84484; 85025; 85610; 85730; 86850; 86900; 86901; 93005; 96361; 96374; G0378; J2250; J2470